=== PATIENT | female | born 1965 | race Caucasian/White ===

== ENCOUNTER 2020-04-09 10:07 | Emergency (ER) | payer OTHER, SELFPAY ==
--- NOTE | ~2020-04-09 | XR_ITS ---
EXAMINATION: XR hip LT min 3V w AP pelvis EXAM DATE: 04/09/2020 11:40 INDICATION: Initial encounter following injury, with pain of the pelvis, left hip. TECHNIQUE: Left hip frontal, crosstable lateral and 'frog-leg' projections for interpretation. Fronta l projection pelvis. Comparison is made to prior examination from 11/23/2004. FINDINGS: Smooth left hip femoral head contour, no radiographic evidence of avascular necrosis. Ther e are no acute pelvic or left hip fractures or dislocations identified. There is no subcutaneous gas . The soft tissue is unremarkable. L5-S1 interbody fusion. There is mild to moderate bilateral hip primary osteoarthritis. IMPRESSION: 1. Pelvis, left hip exam without acute osseous findings. Reviewed, dictated and finalized at location A. WORKER
--- NOTE | ~2020-04-09 | XR_ITS ---
EXAMINATION: XR knee LT min 4V DATE: 04/09/2020 11:40 INDICATION: Left knee pain. TECHNIQUE: 4 views of left knee were obtained. COMPARISON: Left knee radiographs 12/03/2007 FINDINGS: Bone alignment is normal. No fracture. There is mild osteoarthritis of medial and lateral c ompartments and moderate osteoarthritis of patellofemoral compartment. No knee joint effusion. IMPRESSION: 1. Moderate left knee osteoarthritis. Reviewed, dictated and finalized at location A. OYMENT PROGRAM REPRESENTATIVE
--- NOTE | ~2020-04-09 | XR_ITS ---
EXAMINATION: XR knee RT min 4V DATE: 04/09/2020 11:40 INDICATION: Right knee pain. Fall. TECHNIQUE: 4 views of right knee were obtained. COMPARISON: Right knee radiographs 12/03/2007 FINDINGS: Bone alignment is normal. No fracture. There is mild osteoarthritis of medial and lateral c ompartments and moderate osteoarthritis of patellofemoral compartment. No knee joint effusion. IMPRESSION: 1. Moderate right knee osteoarthritis. Reviewed, dictated and finalized at location A. ANY DANCER
--- NOTE | ~2020-04-09 | XR_ITS ---
EXAMINATION: XR ribs RT 2V w CXR 2V EXAM DATE: 04/09/2020 11:40 INDICATION: right sided lateral rib pain, fall . Initial encounter. TECHNIQUE: Frontal projection of the upper right ribs, frontal projection of the lower right ribs, ob lique projection of the right ribs, frontal and lateral chest x-ray(s) for interpretation. Comparison is made to prior examination from 03/26/2005. FINDINGS: There are no displaced acute right rib fractures identified. There is no soft tissue abno rmality seen. No confluent consolidation, pneumothorax or pleural effusion suspected. There are beka cystectomy clips. IMPRESSION: Unremarkable chest x-ray, right rib exam. Reviewed, dictated and finalized at location A. ER HAND
--- NOTE | ~2020-04-09 | CT_ITS ---
EXAMINATION: CT thoracic lumbar wo con EXAM DATE: 04/09/2020 11:08 INDICATION: back pain, fall . Initial encounter. TECHNIQUE: Spiral CT thoracolumbar spine was performed without contrast. Axial, coronal and sagittal images of the thoracic spine were reviewed. Axial, coronal and sagittal images of the lumbar spine we re reviewed. The dose-length product (DLP) for this examination was 1709.22 mGy-cm. The exposure was tailored according to patient size (auto mA exposure control), and iterative reconstruction (ASIR) w as used as additional dose reduction technique. Comparison is made to prior examination from 09/27/2014 . FINDINGS: THORACIC SPINE: Congenitally aberrant right subclavian artery. There are no acute fractures identifie d. The vertebral bodies are aligned in the AP dimension. Vertebral body heights are maintained. Mild thoracic spondylosis. No significant central canal or neural foraminal stenosis. LUMBAR SPINE: Interbody fusion L5-S1. There is no evidence of acute lumbar fracture. There is no di sc space widening or traumatic vertebral body subluxation suspected. Paraspinal soft tissue is unrem arkable. Vertebral body and disc heights are well-maintained. Mild lower lumbar disc bulges and fa cet arthropathy. A detailed level by level evaluation of spondylosis can be added as addendum if req uested. IMPRESSION: 1. No acute thoracolumbar findings. 2. Mild thoracolumbar spondylosis. Reviewed, dictated and finalized at location A. PENDENT CROP CONSULTANT
[2020-04-09 10:12] VITALS: BP 128/94; PULSE 74; RESP 16; TEMP 36.1; O2SAT 99
[2020-04-09 10:33] VITALS: BP 129/84; PULSE 74; RESP 16; TEMP 36.5; O2SAT 97
--- NOTE | 2020-04-09 10:45 | PC.NURSE ---
REPORT TO JUAREZ PATRICIA SHE HAS ASSUMED PT CARE.
--- NOTE | 2020-04-09 11:27 | ED.FALL ---
HPI - Fall General Chief Complaint: Fall Stated Complaint: fall/knee pain/rib pain Time Seen by Provider: 04/09/20 10:36 Source: patient Mode of arrival: wheelchair Limitations: no limitations History of Present Illness HPI Narrative: This is a 55-year-old female that presents to the emergency department after a fall last night with knee pain and back pain. 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 Reports she fell forward landing on her knees. Reports that she has had pain in both her knees, the right side of her ribs, in her mid to low back. Also reports pain on the right side of her ribs. Denies hitting her head, loss of consciousness, prodromal symptoms, vision changes, vomiting, shortness of breath, numbness or weakness. Related Data Home Medications Medication Instructions Recorded Confirmed amlodipine 2.5 mg PO DAILY 04/09/20 aspirin 81 mg PO DAILY 04/09/20 carvedilol 6.25 mg PO BID 04/09/20 diazepam [Valium] 2 mg PO BID PRN 04/09/20 divalproex [Depakote] 2,000 mg PO Q12H 04/09/20 duloxetine 60 mg PO DAILY 04/09/20 duloxetine [Cymbalta] 60 mg PO DAILY 04/09/20 ibuprofen 800 mg PO Q6H 04/09/20 mirtazapine [Remeron] 45 mg PO DAILY 04/09/20 nitrofurantoin monohyd/m-cryst 100 mg PO Q12H 04/09/20 [Macrobid] Allergies Allergy/AdvReac Type Severity Reaction Status Date / Time acetaminophen Allergy Unknown Hives / Unverified 12/11/16 12:14 Red Face coconut oil Allergy Unknown Verified 12/11/16 12:14 hydromorphone Allergy Unknown Anaphylactic Unverified 12/11/16 12:14 Shock pregabalin Allergy Unknown Dyspnea / Unverified 12/11/16 12:14 SOB tramadol Allergy Unknown Hives / Unverified 12/11/16 12:14 Red Face BETALACTAMASEIN Allergy Mild RASH, Uncoded 09/06/08 12:52 VOMITTING Review of Systems Review of Systems: Narrative: CONSTITUTIONAL: Denies fever EYES: Denies visual changes CARDIOVASCULAR: Reports rib pain RESPIRATORY: Denies dyspnea. GASTROINTESTINAL: Denies vomiting MUSCULOSKELETAL: Reports back pain, joint pain, and myalgia. NEUROLOGIC: Denies headache, numbness, or weakness. All systems reviewed & are unremarkable except as noted in HPI and below PMFSH Past Medical History Medical History (Updated 04/09/20 @ 12:03 by Ada Ceballos PA-C) History of depression History of hypertension Family History Family History (Updated 08/13/10 @ 11:27 by DOCTOR UNKNOWN) Other Family history of arthritis Family history of mental disorder Family history of seizure disorder Hypertension Social History Social History (Updated 04/09/20 @ 11:29 by Ada Ceballos PA-C) Smoking status: Current every day smoker Alcohol intake: current Substance use: never Gender identity (if verbalized by the patient): Female Exam Narrative: Exam Narrative: GENERAL: Well-appearing, well-nourished, and in no acute distress. HEAD: Normocephalic, atraumatic. EYES: PERRLA and EOMI. ENT: Nares clear, no rhinorrhea or epistaxis. Mucous membranes moist. Oropharynx without tonsillar hypertrophy exudate or other lesions. Bilateral TMs pearly calderón non-bulging NECK: Supple. No adenopathy or masses. No midline cervical spine tenderness CHEST: Clear to auscultation. No respiratory distress. No wheezes rales or rhonchi HEART: Regular rate and rhythm. No murmur heard. Normal peripheral pulses. ABDOMEN: Soft, nontender, nondistended, normal active bowel sounds. BACK: Tender to palpation of midline thoracic and lumbar spine EXTREMITIES: Normal range of motion. No edema or obvious deformity. Strength equal in bilateral upper and lower extremities SKIN: Warm, dry, no rash. NEURO: No focal deficits. Alert and oriented x3. CN II-XII grossly intact PSYCH: Normal mood and affect Course Vital Signs Vital signs: Vital Signs Temperature 97.0 F L 04/09/20 10:12 Pulse Rate 74 04/09/20 10:12 Respiratory Rate 16 04/09/20 10:12 Blood Pressur
[2020-04-09] MEDS: KETOROLAC (*BKC) 60 MG/2 ML VIAL IM (11:44)
[2020-04-09 12:14] VITALS: BP 128/78; PULSE 76; RESP 18; O2SAT 99
== END 2020-04-09 12:16 | disposition home or self-care (01) ==
PROVIDERS: Emergency Provider Emergency Medicine; PCP Family Medicine
DX: M25.562 Pain in left knee (principal); M25.561 Pain in right knee; S20.211A Contusion of right front wall of thorax, initial encounter; M25.552 Pain in left hip; S39.92XA Unspecified injury of lower back, initial encounter; S29.9XXA Unspecified injury of thorax, initial encounter; Z79.82 Long term (current) use of aspirin; F32.9 Major depressive disorder, single episode, unspecified; I10 Essential (primary) hypertension; F17.200 Nicotine dependence, unspecified, uncomplicated; M47.815 Spondylosis without myelopathy or radiculopathy, thoracolumbar region; M17.0 Bilateral primary osteoarthritis of knee; W18.39XA Other fall on same level, initial encounter
CPT/HCPCS: 71046; 71100; 72128; 72131; 73502; 73564; 96372; 99284; J1885